=== PATIENT | male | born 1995 | race Two or more races ===

== ENCOUNTER 2025-04-04 20:12 | Emergency (ER) | payer SELFPAY | END 2025-04-04 21:15 | LOC: MW.ED 20:12 | DX: Z02.89 Encounter for other administrative examinations (principal); F15.10 Other stimulant abuse, uncomplicated; F11.10 Opioid abuse, uncomplicated; F17.200 Nicotine dependence, unspecified, uncomplicated | CPT/HCPCS: 99282; 99283 ==